=== PATIENT | male | born 1985 | race Caucasian/White ===

== ENCOUNTER 2017-11-26 15:38 | Emergency (ER) | payer MEDICAID ==
[~2017-11-26] VITALS: Ht 167.6 cm; Wt 50.0 kg
[~2017-11-26 15:38] MED LIST: CLIN-79 PO; DIPH-423 PO; PRED50TA PO
[2017-11-26 15:46] VITALS: BP 136/80
[2017-11-26] MEDS ORDERED: SULF1TAB49 PO (15:57)
== END 2017-11-26 16:02 | disposition home or self-care (01) ==
LOC: ER 15:39
DX: L03.211 Cellulitis of face (principal); F12.10 Cannabis abuse, uncomplicated; Z79.899 Other long term (current) drug therapy; Z88.0 Allergy status to penicillin
CPT/HCPCS: 99283

== ENCOUNTER 2021-04-27 07:00 | Emergency (ER) | payer MEDICAID ==
[~2021-04-27] VITALS: Ht 170.2 cm; Wt 65.9 kg
[~2021-04-27 07:00] MED LIST changes: +CEPH-571 PO; -CLIN-79 PO; +CLIN150C8 PO
[2021-04-27] MEDS ORDERED: dexamethasone sod phosphate 10mg/ml inj IV STA (07:21)
[2021-04-27] MEDS ORDERED: famotidine/PF 10 mg/ml inj IV ONE (07:25)
[2021-04-27] MEDS ORDERED: diphenhydrAMINE 50 mg/ml inj IV ONE (07:25)
[2021-04-27] MEDS ORDERED: epiNEPHrine 1 mg/ml inj SQ PRN (07:35)
[2021-04-27] MEDS ORDERED: PRED20TA PO ×2 (07:57→08:23)
[2021-04-27] MEDS ORDERED: EPIN0.154 IM (07:57)
[2021-04-27] MEDS ORDERED: EPIN0.3P3 IJ (08:23)
[2021-04-27] MEDS ORDERED: acetaminophen 325mg tablet PO ONE (08:40)
[2021-04-27 08:47] VITALS: BP 123/93
== END 2021-04-27 08:47 | disposition home or self-care (01) ==
LOC: ER 07:00
DX: T63.441A Toxic effect of venom of bees, accidental (unintentional), initial encounter (principal); R06.02 Shortness of breath; R22.0 Localized swelling, mass and lump, head; F12.90 Cannabis use, unspecified, uncomplicated; Z88.0 Allergy status to penicillin; Z91.030 Bee allergy status; Z79.2 Long term (current) use of antibiotics; Z79.899 Other long term (current) drug therapy; Y92.89 Other specified places as the place of occurrence of the external cause
CPT/HCPCS: 96372; 96374; 96375; 99284; J0171; J1100; J3490

== ENCOUNTER 2022-01-20 15:36 | Emergency (ER) | payer MEDICAID ==
[~2022-01-20] VITALS: Ht 165.1 cm; Wt 72.7 kg
[~2022-01-20 15:36] MED LIST changes: +EPIN0.3P3 IJ
[2022-01-20 16:01] VITALS: BP 128/85
[2022-01-20] MEDS ORDERED: LIDOCAINE 2% w/EPI 1:100:000 30mL injection MDV**cath lab 1 only SQ ONE (16:40)
[2022-01-20] MEDS ORDERED: LIDOcaine 1% (10mg/ml) 2ml vial SQ ONE (16:50)
[2022-01-20] MEDS ORDERED: CEPH250T PO (17:56)
== END 2022-01-20 17:59 | disposition home or self-care (01) ==
LOC: ER 15:37
DX: S60.351A Superficial foreign body of right thumb, initial encounter (principal); F12.90 Cannabis use, unspecified, uncomplicated; Z88.0 Allergy status to penicillin; Z91.030 Bee allergy status; Z79.2 Long term (current) use of antibiotics; Z79.899 Other long term (current) drug therapy; X58.XXXA Exposure to other specified factors, initial encounter; Y93.89 Activity, other specified; Y92.89 Other specified places as the place of occurrence of the external cause; Y99.8 Other external cause status
CPT/HCPCS: 10120; 73130; 96372; 99284; 99285

== ENCOUNTER 2022-10-20 11:12 | Emergency (ER) | payer MEDICAID | END 2022-10-20 16:18 | disposition left against medical advice (07) | LOC: ER 11:12 | DX: H57.89 Other specified disorders of eye and adnexa (principal); Z53.21 Procedure and treatment not carried out due to patient leaving prior to being seen by health care provider ==

== ENCOUNTER 2022-10-22 19:17 | Emergency (ER) | payer MEDICAID ==
[~2022-10-22] VITALS: Ht 162.6 cm; Wt 68.3 kg
[2022-10-22 19:19] VITALS: BP 136/88
== END 2022-10-22 23:29 | disposition left against medical advice (07) ==
LOC: ER 19:18
DX: H57.12 Ocular pain, left eye (principal); Z53.21 Procedure and treatment not carried out due to patient leaving prior to being seen by health care provider